=== PATIENT | female | born 1955 | race African-American/Black ===

== ENCOUNTER 2019-05-26 15:12 | Emergency (ER) | payer MEDICARE, OTHER ==
--- NOTE | 2019-05-26 18:46 | ULT ---
VENOUS DOPPLER ULTRASOUND OF THE LEFT LOWER EXTREMITY: 05/26/19 HISTORY: Left leg pain and edema. TECHNIQUE: Brannon scale with color flow and spectral Doppler imaging of the deep venous system of the left lower e xtremity was performed. FINDINGS: There is good flow, compression, and augmentation noted in the left common femoral, femoral, deep fem oral, popliteal, posterior tibial and greater saphenous veins. IMPRESSION: No evidence of DVT in the left lower extremity. POS: PRABHA
== END 2019-05-26 18:51 | disposition home or self-care (01) ==
LOC: ERS 15:12
DX: M79.652 Pain in left thigh (principal); E78.5 Hyperlipidemia, unspecified; I10 Essential (primary) hypertension; E11.9 Type 2 diabetes mellitus without complications; Z79.82 Long term (current) use of aspirin; Z79.899 Other long term (current) drug therapy; Z79.84 Long term (current) use of oral hypoglycemic drugs

== ENCOUNTER 2021-12-06 09:02 | Outpatient (CLI) | payer OTHER | END 2021-12-06 09:03 | disposition home or self-care (01) | LOC: BICMAMMO 09:02 | PROVIDERS: ATTEND Family Medicine | DX: Z12.31 Encounter for screening mammogram for malignant neoplasm of breast (principal); Z85.72 Personal history of non-Hodgkin lymphomas | CPT/HCPCS: 77063; 77067 ==

== ENCOUNTER 2023-06-20 07:45 | Outpatient (CLI) | payer OTHER | END 2023-06-20 07:46 | disposition home or self-care (01) | LOC: BICMAMMO 07:45 | PROVIDERS: ATTEND Family Medicine | DX: Z12.31 Encounter for screening mammogram for malignant neoplasm of breast (principal); Z78.0 Asymptomatic menopausal state; Z85.72 Personal history of non-Hodgkin lymphomas | CPT/HCPCS: 77063; 77067; 77080 ==